=== PATIENT | male | born 1965 | race Caucasian/White ===

== ENCOUNTER 2021-06-07 08:51 | Outpatient (RCR) | payer MEDICAID, SELFPAY ==
[2021-06-07 08:52] VITALS: BP 146/76; PULSE 83; RESP 18; TEMP 36.8
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
== END 2021-06-13 23:59 ==
LOC: WC 08:51
PROVIDERS: PCP Internal Medicine; Visit Provider Nurse Practitioner
DX: S61.401S Unspecified open wound of right hand, sequela (principal); L08.9 Local infection of the skin and subcutaneous tissue, unspecified; M79.89 Other specified soft tissue disorders; T65.91XS Toxic effect of unspecified substance, accidental (unintentional), sequela; L02.211 Cutaneous abscess of abdominal wall
CPT/HCPCS: 11042; 11045; 87070; 87075; 87077; 87186; 87205; 99203; G0463

== ENCOUNTER 2021-06-21 11:15 | Outpatient (RCR) | payer MEDICAID, SELFPAY ==
[2021-06-14 00:43] VITALS: BP 146/76; PULSE 83; RESP 18; TEMP 36.8
[2021-06-14 10:21] VITALS: BP 130/69; PULSE 67; TEMP 36.2
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
[2021-06-21 11:14] VITALS: BP 138/93; PULSE 84; TEMP 36.8
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
== END 2021-06-21 11:25 | disposition home or self-care (01) ==
LOC: WC 11:15
PROVIDERS: PCP Internal Medicine; Visit Provider Nurse Practitioner
DX: S61.401S Unspecified open wound of right hand, sequela (principal); L08.9 Local infection of the skin and subcutaneous tissue, unspecified; M79.89 Other specified soft tissue disorders; T65.91XS Toxic effect of unspecified substance, accidental (unintentional), sequela; L02.211 Cutaneous abscess of abdominal wall
CPT/HCPCS: 11042; 99213; G0463

== ENCOUNTER 2021-09-22 13:08 | Outpatient (RCR) | payer MEDICAID, SELFPAY ==
[2021-09-22 13:34] VITALS: BP 146/65; PULSE 51; RESP 18; TEMP 36.6
== END 2021-10-13 23:59 ==
LOC: WC 13:08
PROVIDERS: PCP Internal Medicine; Visit Provider Nurse Practitioner
DX: Z48.02 Encounter for removal of sutures (principal)
CPT/HCPCS: 99212; G0463